=== PATIENT | female | born 1990 | race Caucasian/White ===

== ENCOUNTER 2016-11-05 15:54 | Emergency (ER) | payer BC ==
[2016-11-05 16:01] VITALS: BP 142/82; PULSE 84; TEMP 97.9; BMI 21.9
--- NOTE | 2016-11-05 16:55 | PDOC ---
History of Present Illness - History of Present Illness Initial Comments: 11/05/16 17:14 The patient is a 26 year old female, with a significant past medical history of kidney stones (surgical removal 2x), who presents to the emergency department with persistent cough, chest and nasal congestion for over a month with new onset of left sided back/flank pain for the past week. She states her cough is productive of yellow sputum and persistent. She reports her left sided back pain is non-radiating and worsened with deep inspiration. She states that when she coughs or lies flat to sleep her back pain is a 10/10 in severity. She states she thought she just had a cold, however, when the cough began to reproduce pain she became concerned. She denies any recent travels. She denies sick contacts. She denies chest pain, shortness of breath, headache and dizziness. She denies fever, chills, nausea, vomit, diarrhea and constipation. She denies dysuria, frequency, urgency and hematuria. Allergies: NKDA Social history: denies toxic habits <Stefanie Delaney - Last Filed: 11/05/16 17:14> <Andrzej Berumen - Last Filed: 11/05/16 18:12> - General Chief Complaint: Cold Symptoms Stated Complaint: COUGH Time Seen by Provider: 11/05/16 16:50 Past History <Stefanie Delaney - Last Filed: 11/05/16 17:14> - Past Medical History Other medical history: KID - Psycho/Social/Smoking Cessation Hx Anxiety: No Suicidal Ideation: No Smoking History: Never smoked Hx Alcohol Use: No Drug/Substance Use Hx: No Substance Use Type: Alcohol <Andrzej Berumen - Last Filed: 11/05/16 18:12> - Past Medical History Allergies/Adverse Reactions: Allergies Allergy/AdvReac Type Severity Reaction Status Date / Time No Known Allergies Allergy Verified 11/05/16 15:55 Home Medications: Ambulatory Orders Dextroamphetamine/Amphetamine [Adderall 10 mg Tablet] 10 mg PO DAILY 11/05/16 Norethindrone-E.estradiol-Iron [Loestrin Fe 1-20 Tablet] 1 each PO DAILY Review of Systems - Review of Systems Able to Perform ROS?: Yes Comments:: 01/30/17 17:15 CONSTITUTIONAL: Absent: fever, chills, diaphoresis, generalized weakness, malaise, loss of appetite HEENT: Absent: rhinorrhea, nasal congestion, throat pain, throat swelling, difficulty swallowing, mouth swelling, ear pain, eye pain, visual Changes CARDIOVASCULAR: Absent: chest pain, syncope, palpitations, irregular heart rate, lightheadedness , peripheral edema RESPIRATORY: (+) cough, Absent: shortness of breath, dyspnea with exertion, orthopnea, wheezing, stridor, hemoptysis GASTROINTESTINAL: Absent: abdominal pain, abdominal distension, nausea, vomiting, diarrhea, constipation, melena, hematochezia GENITOURINARY: (+) Left flank/upper back pain. Absent: dysuria, frequency, urgency, hesitancy, hematuria, genital pain MUSCULOSKELETAL: Absent: myalgia, arthralgia, joint swelling SKIN: Absent: rash, itching, pallor HEMATOLOGIC/IMMUNOLOGIC: Absent: easy bleeding, easy bruising, lymphadenopathy, frequent infections ENDOCRINE: Absent: unexplained weight gain, unexplained weight loss, heat intolerance, cold intolerance NEUROLOGIC: Absent: headache, focal weakness or paresthesia, dizziness, unsteady gait, seizure, mental status changes, bladder or bowel incontinence PSYCHIATRIC: Absent: anxiety, depression, suicidal or homicidal ideation, hallucinations <Stefanie Delaney - Last Filed: 11/05/16 17:14> *Physical Exam - Vital Signs Last Vital Signs Temp Pulse Resp BP Pulse Ox 97.9 F 84 18 142/82 100 11/05/16 15:55 11/05/16 15:55 11/05/16 15:55 11/05/16 15:55 11/05/16 15:55 - Physical Exam Comments: 11/05/16 17:15 GENERAL: Well developed, well nourished. Awake and alert. No acute distress. HEENT: Normocephalic, atraumatic. PERRLA, EOMI. No conjunctival pallor. Sclera are non- icteric. Moist mucous membranes. Oropharynx is clear. NECK: Supple. Full ROM. No JVD. Carotid pulses 2+ and symmetric, without bruits. No thyromegaly. No lymphadenopathy. CARDIOVASCULAR: Regular rate and rhythm. No murmurs, rubs, or gallops. Distal pulses are 2+ and symmetric. No bony deformities of the lateral ribs. PULMONARY: (+) splinting with deep inspiration reproducing her pain in the left lateral chest. No evidence of respiratory distress. Lungs clear to auscultation bilaterally. No wheezing, rales or rhonchi. ABDOMINAL: Soft. Non-tender. Non-distended. No rebound or guarding. No organomegaly. Normoactive bowel sounds. MUSCULOSKELETAL Normal range of motion at all joints. No bony deformities or tenderness. No CVA tenderness. EXTREMITIES: No cyanosis. No clubbing. No edema. No calf tenderness. SKIN: Warm and dry. Normal capillary refill. No rashes. No jaundice. NEUROLOGICAL: Alert, awake, appropriate. Cranial nerves 2-12 intact. No motor deficits in the upper extremities and lower extremities. Normoreflexic in the upper and lower extremities. Normal speech. Gait is normal without ataxia. PSYCHIATRIC: Cooperative. Good eye contact. Appropriate mood and affect. <Stefanie Delaney - Last Filed: 11/05/16 17:14> - Vital Signs Last Vital Signs Temp Pulse Resp BP Pulse Ox 97.9 F 84 18 142/82 100 11/05/16 15:55 11/05/16 15:55 11/05/16 15:55 11/05/16 15:55 11/05/16 15:55 <Andrzej Berumen - Last Filed: 11/05/16 18:12> Medical Decision Making - Medical Decision Making 11/05/16 18:10 Chest x-ray is clear. Urinalysis is clear. This is likely residual bronchial inflammation due to a previous viral infection. There is no fever, shortness of breath, and oxygen saturation is 100% . Probably no active infection Symptomatic treatment with analgesics, ice massage, and avoiding upper body exercise until healing occurs. Patient fully ambulatory, in no significant pain or distress upon discharge to follow-up as needed. <Andrzej Berumen - Last Filed: 11/05/16 18:12> *DC/Admit/Observation/Transfer - Attestations Scribe Attestion: 11/05/16 17:17 Documentation prepared by Stefanie Delaney, acting as medical anthropologist for Andrzej Purdy MD <Stefanie Delaney - Last Filed: 11/05/16 17:14> - Discharge Dispostion Admit: No <Andrzej Berumen - Last Filed: 11/05/16 18:12> Diagnosis at time of Disposition: Rib injury - Discharge Dispostion Disposition: HOME Condition at time of disposition: Stable - Patient Instructions Printed Discharge Instructions: DI for Costochondritis Additional Instructions: If there is fever or shortness of breath, return to ER or see primary physician immediately Take Motrin or Advil, 3 OTC pills or capsules 3 times a day for inflammation Gentle ice massage may be helpful.
[2016-11-05 17:14] LABS: PH,URINE 6.5 (4.5-8); URINE APPEARANCE Clear; URINE BILIRUBIN Negative (NEGATIVE); URINE BLOOD Negative (NEGATIVE); URINE GLUCOSE (UA) Negative (NEGATIVE); URINE KETONE Negative (NEGATIVE); URINE NITRITE Negative (NEGATIVE); URINE PROTEIN Trace (NEGATIVE); URINE UROBILINOGEN 0.2 E.U/dl (0.2-1.0)
[2016-11-05 17:24] LABS: URINE COLOR YELLOW; URINE LEUK ESTERASE 1+ (NEGATIVE)
[2016-11-05 17:51] LABS: URINE RBC 0-2 /hpf (0-3)
[2016-11-05 17:52] LABS: URINE BACTERIA FEW /hpf (NEGATIVE)
== END 2016-11-05 18:13 | disposition home or self-care (01) ==
LOC: FER 15:54
DX: S29.9XXA Unspecified injury of thorax, initial encounter (principal); Z87.442 Personal history of urinary calculi; X58.XXXA Exposure to other specified factors, initial encounter; Y93.9 Activity, unspecified; Y92.9 Unspecified place or not applicable
CPT/HCPCS: 71020-TC; 81003; 81015; 84703; 99282-25